=== PATIENT | male | born 1935 | race Caucasian/White ===

== ENCOUNTER 2016-08-08 15:52 | Emergency (ER) | payer MEDICAID, MEDICARE ==
[2016-08-08 19:54] VITALS: BP 158/97
--- NOTE | 2016-08-10 14:44 | CR ---
INDICATION: Aortic stenosis and mitral insufficiency. CHEST: AP and lateral views of the chest were obtained and revealed somewhat flattened diaphragm leaves with hyperaeration and AP diameter prominent, suggesting COPD. The heart is enlarged in general. The aorta is tortuous and calcified in the arch and descending portion. Demineralization is also suggested, compatible with osteoporosis. Degenerative changes and impingement are suggested at the shoulder joints. Dextroconvex scoliosis of the upper middle thoracic spine is noted with mild hypertrophic degenerative changes. A definite active infiltrate or effusion was not identified with slightly heavy markings, likely fibrotic in nature. No definite evidence of CHF is seen. IMPRESSION: No acute process. Multiple findings as noted above. MTDD
--- NOTE | 2016-08-14 10:52 | ER ---
DATE SEEN: 08/08/2016 TIME SEEN: The patient was seen at 1545. CHIEF COMPLAINT: Confusion, syncope, fall, concussion. 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 Denies chest pain or shortness of breath, but he has become more confused. Ambulance brought him to the hospital. He does not recall if he called the ambulance or somebody else called the ambulance and found him on the ground. When I asked why he is here, he says, "I don't know why I'm here." The patient had difficulty with orientation. He knew the date, the day, where he was, the city and state, and his date. He still had confusion. He would perseverate continually, saying the same thing, asking the same questions over and over and over and over. On initial arrival, on primary exam, he is agitated, has perseveration, asking the same questions over and over and over. His mouth is quite dry. He denies alcohol ingestion. He denies compromise in vision or hearing, although he is very hard of hearing. He has a tj face. Some actinic keratosis to his face. PERRLA intact. He has an abrasion on his right frontal area that has not had associated hematoma or crepitus. His neck is without tenderness, and a soft collar was placed, as the neck was examined. He has no chest pains, chest wall discomfort, back pain. No upper or lower extremity pain or deformity or swelling, ecchymosis. He denies abdominal pain, change in bowel or recent diarrhea or dehydration or coughing or vomiting or blood in the stool. Denies upper or lower extremity pain, paresis, or weakness. He has not seen a doctor for several years. Later on, it was related he has had intermittent episodes of falling and dizziness. REVIEW OF SYSTEMS: Otherwise, negative, except for noted above. ALLERGIES: None. MEDICATIONS: None. PHYSICAL EXAMINATION: VITAL SIGNS: Blood pressure 153/121 on arrival, heart rate 88, mean arterial pressure 131, respiratory rate 20, oxygen saturation 98%, 36.6 degrees centigrade. HEENT: The patient has extensive actinic keratosis of face. Hearing is decreased. Pharynx without abnormality. LUNGS: Without rales. Has no chest wall tenderness. No contusion to chest noted. ABDOMEN: Soft. No guarding. No abdominal discomfort. Bowel sounds present. No CVA percussion. No spinous process tenderness. No rib tenderness. EXTREMITIES: No tenderness in his knees or ankles, or swelling, erythema, hematomas, or ecchymosis noted. He has senile purpura scattered over on his upper extremities. NEUROLOGICAL: Hand custodial aide is intact. Lower extremity strength: Dorsiflexion and plantar flexion is intact. I can roll his entire body with feet in dorsiflexed position. No dysmetria. Speech is appropriate, even though he has constant intermittent perseveration. Immediate CAT scan of his head and neck were performed; did not demonstrate any intracranial abnormality. The cervical spine was without fracture or malalignment. There is mild spondylolisthesis noted. There is disk bulge osteophyte complex at C4-5, resultant spinal stenosis. Multilevel facet arthrosis noted. When he stands up, he has marked dizziness. He cannot stand. On several occasions, he got somewhat anxious and agitated that he pulled himself to the end of the bed and tried to stand up, and he was leaning at the side because he could not stand vertical. He had no balance. He had to be lifted back in bed because of his marked impaired strength. When a step was placed by the bedside, he could not lift his right leg to get it on top of that to lift himself up onto the bed. He could not bring his left leg up either, nor could he manipulate his body to bend his knees to even try to sit down. He felt too unstable. ASSESSMENT: 1. Rule out cerebellar bleed or tumor. 2. History of falls. 3. Concussion. 4. Abrasion of right frontal area. 5. Mild diffuse cerebral atrophy and perhaps it is even worse with cerebellar component. Needs MRI to validate this and evaluate the vascular status of the cerebellum. No cervical spine fracture. 6. Confusion, has moderate perseveration. PLAN: Arrangements were made to have the patient transferred to [facility] for further evaluation. I spoke with Dr. Telles, [facility], and they are expecting the patient to be transferred by ambulance to the hospital. /[id number] MATT/MARTAL
== END 2016-08-08 19:00 ==
LOC: EDBD → FB.ED 15:52
DX: S06.0X9A Concussion with loss of consciousness of unspecified duration, initial encounter (principal); S00.81XA Abrasion of other part of head, initial encounter; G31.9 Degenerative disease of nervous system, unspecified; V59.9XXA Occupant (driver) (passenger) of pick-up truck or van injured in unspecified traffic accident, initial encounter
CPT/HCPCS: 36415; 70450; 71020; 72125; 80053; 83880; 84484; 85025; 85379; 99284; 99285

== ENCOUNTER 2017-02-12 19:04 | Emergency (ER) | payer MEDICAID, MEDICARE ==
--- NOTE | 2017-02-12 20:24 | EDM.PDOC ---
ED HPI GENERAL MEDICAL PROBLEM - General Chief Complaint: Abdominal Pain Stated Complaint: HERNIA Time Seen by Provider: 02/12/17 19:04 Source of Information: Reports: Patient, EMS History Limitations: Reports: Altered Mental Status - History of Present Illness INITIAL COMMENTS - FREE TEXT/NARRATIVE: 81 y.o.w.m with h/o dementia. was brought to the ed because of " no Bowelsounds and an umbilical hernia" Pt is not able to give a HPI. No family is present. Pt does not appear to be in any discomfort. Pt says "i am doing fine" Onset: Unknown/Unsure Onset Date: 02/12/17 Onset Time: 08:00 Duration: Constant Location: Reports: Abdomen Quality: Reports: Other (no pain) Severity: Mild Improves with: Reports: None Worsens with: Reports: None, Medication Associated Symptoms: Reports: Other ([facility] patient) - Related Data Allergies Allergy/AdvReac Type Severity Reaction Status Date / Time No Known Allergies Allergy Verified 02/12/17 20:11 Home Meds: Home Meds Ascorbate Calcium [Vitamin C] 500 mg PO DAILY 02/12/17 [History] amLODIPine [Norvasc] 5 mg PO DAILY 02/12/17 [History] Past Medical History - Past Health History Medical/Surgical History: Denies Medical/Surgical History Social & Family History - Tobacco Use Smoking Status *Q: Unknown Ever Smoked Second Hand Smoke Exposure: No ED ROS GENERAL - Review of Systems Review Of Systems: Unable To Obtain ED EXAM, GI/ABD - Physical Exam Exam: See Below Exam Limited By: Altered Mental Status General Appearance: Alert, WD/WN, No Apparent Distress, Thin Eyes: Bilateral: Normal Appearance Ears: Normal External Exam Nose: Normal Inspection Throat/Mouth: Normal Inspection Head: Atraumatic, Normocephalic Neck: Normal Inspection, Supple Respiratory/Chest: No Respiratory Distress, Lungs Clear (poor insp effort) Cardiovascular: Normal Peripheral Pulses, Regular Rate, Rhythm GI/Abdominal Exam: Normal Bowel Sounds, Soft, Non-Tender, No Organomegaly, No Distention, Other (reducable umbilical hernia) (Male) Exam: Deferred Rectal (Males) Exam: Deferred Back Exam: Normal Inspection, Full Range of Motion Extremities: Normal Inspection, Normal Range of Motion Neurological: Alert, Confused, Disoriented, Memory Loss Remote Events, Abnormal Gait Psychiatric: Normal Affect Skin Exam: Warm, Dry Lymphatic: No Adenopathy Course - Vital Signs Text/Narrative:: 81 y.o.w.m with h/o dementia. was brought to the ed because of " no Bowelsounds and an umbilical hernia" Pt is not able to give a HPI. No family is present. Pt does not appear to be in any discomfort. Pt says "i am doing fine" PE: 81 y.o. w m, thin, in NAD Impression: Dementia, thin, No acute abdomen. Plan: D/C back to senior living - Orders/Labs/Meds Orders: Active Orders 24 hr Category Date Time Status Abdomen 1V Flat [CR] Stat Exams 02/12/17 19:20 Taken Chest 1V Frontal [CR] Stat Exams 02/12/17 19:20 Taken Departure - Departure Time of Disposition: 20:20 Disposition: Home, Self-Care 01 Condition: Good Clinical Impression: Umbilical hernia Dementia Qualifiers: Dementia type: unspecified type - Discharge Information Referrals: Wilder Toribio MD [Primary Care Provider] - Forms: ED Department Discharge Additional Instructions: Please f/u with your PMD, please come back if your symptoms get worse. - My Orders Last 24 Hours: My Active Orders 02/12/17 19:20 Abdomen 1V Flat [CR] Stat Chest 1V Frontal [CR] Stat - Assessment/Plan Last 24 Hours: My Active Orders 02/12/17 19:20 Abdomen 1V Flat [CR] Stat Chest 1V Frontal [CR] Stat
[2017-02-12 21:56] VITALS: BP 158/85
--- NOTE | 2017-02-15 15:42 | CR ---
INDICATION: No bowel sounds heard. CHEST: A single AP upright view of the chest 02/12/2017 was compared with 08/08 and revealed the heart to appear enlarged with tortuous aorta calcified in the arch area. A definite active infiltrate or effusion was not identified. No free air was noted under the hemidiaphragm leaves. Dextroconvex scoliosis of mild to moderate degree is noted in the thoracic spine. IMPRESSION: No acute process. MTDD
--- NOTE | 2017-02-15 15:46 | CR ---
INDICATION: No bowel sounds heard. ABDOMEN: Two supine images of the abdomen were obtained and revealed evidence of previous surgery in the left upper quadrant. The pattern of gas and feces is grossly nonspecific. A mass in the pelvis most likely represents distended urinary bladder. Moderate dextroconcave rotoscoliosis of the lumbar spine is noted. No definite organomegaly or mass lesions were identified. No nonvascular pathologic calcifications were seen. There is some calcification in the aorta. 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 IMPRESSION: Nonacute abdomen. MTDD
== END 2017-02-12 20:55 | disposition home or self-care (01) ==
LOC: FB.ED 19:04
DX: K42.9 Umbilical hernia without obstruction or gangrene (principal); F03.90 Unspecified dementia, unspecified severity, without behavioral disturbance, psychotic disturbance, mood disturbance, and anxiety; Z79.899 Other long term (current) drug therapy
CPT/HCPCS: 71010; 74000; 99284